=== PATIENT | male | born 1955 | race Caucasian/White ===

== ENCOUNTER 2019-04-30 12:02 | Outpatient (CLI) | payer MEDICARE ==
--- NOTE | 2019-04-30 13:49 | CT ---
CTA of the thorax with and without IV contrast INDICATION: History of peripheral vascular disease with diminished blood pressure involving the left upper extremity Contrast: 80 cc of Isovue-[id number] COMPARISON: None FINDINGS: There is [id number]-[id number]-grade stenosis involving the origin and proximal aspect of the left subclavian artery due to partially calcified atherosclerotic plaque. The brachiocephalic and left common carotid artery origins are widely patent. The right subclavian right common carotid arter y origins are patent. Visualized aspects of the vertebral artery origins appear widely patent. The remaining course of the left subclavian artery is widely patent. There are mild vascular calcificatio n involving the thoracic aorta. Visualized celiac and SMA artery origins are patent. No aortic aneurysm or dissection is grossly evident. No central pulmonary embolus is noted. No airspace consoli dation or pleural effusion is noted. No definite enlarged lymph nodes are noted. No definite acute osseous abnormality is evident. IMPRESSION: Near complete stenosis of the origin and proximal aspect of the left subclavian artery du e to calcified atherosclerotic plaque. No additional hemodynamically significant stenosis is seen involving the great vessels of the aortic arch. No acute aortic stenosis, occlusion or aneurysmal for mation is noted.
[2019-04-30] MEDS ORDERED: Iopamidol-370 76% 500 ML 1 ML ONE (13:57)
== END 2019-04-30 12:03 | disposition home or self-care (01) ==
LOC: BICCT 12:02
PROVIDERS: ATTEND Internal Medicine Cardiovascular Disease
DX: I73.9 Peripheral vascular disease, unspecified (principal); I77.1 Stricture of artery
CPT/HCPCS: 71275; 82565; Q9967

== ENCOUNTER 2019-05-06 15:29 | Outpatient (CLI) | payer MEDICARE ==
[~2019-05-06 15:29] MED LIST: Iopamidol-370 76% 500 ML 1 ML ONE
--- NOTE | 2019-05-06 16:09 | CT ---
CT arteriogram neck with IV contrast and 3-D imaging HISTORY: Vascular disease. Hypertension. FINDINGS: Normal branching great vessels at the aortic arch. High-grade stenosis of the origin of the left subclavian artery is as detailed on recent CT chest. The origin of the left vertebral artery is also very small, due partially to the adjacent plaque. Good flow into each vertebral artery. Direc tion is not established on this CT exam. There is prominent plaque and calcification at the right carotid bifurcation and proximal internal ca rotid artery. Within the mid cervical ICA, focal area of approximately 50% stenosis is present. On the left, there is calcification and noncalcified plaque at the bifurcation and left internal lang tid artery. Within the proximal to mid ICA, a focal area of moderate stenosis is present, estimated at 70%. No occlusion. Distal internal carotid arteries are very tortuous bilaterally. Mucosal thickening is evident within the paranasal sinuses. IMPRESSION: Atherosclerosis. Significant stenosis of each internal carotid artery, left greater than right. 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 Stenosis at the origin of the left subclavian artery is again demonstrated, better detailed on recent CT arteriogram chest exam.
== END 2019-05-06 15:30 | disposition home or self-care (01) ==
LOC: BICCT 15:29
PROVIDERS: ATTEND Internal Medicine Cardiovascular Disease
DX: I73.9 Peripheral vascular disease, unspecified (principal); I65.23 Occlusion and stenosis of bilateral carotid arteries
CPT/HCPCS: 70498; Q9967

== ENCOUNTER 2019-05-14 07:47 | Day surgery (SDC) | payer MEDICARE ==
[2019-05-13 10:42] VITALS: BMI 25.6
[2019-05-14] MEDS ORDERED: Lidocaine 1% (PF) 30 ML VIAL ONE (09:26)
[2019-05-14] MEDS ORDERED: Heparin (Artline) 1,000 ML ONE (09:26)
[2019-05-14] MEDS ORDERED: Fentanyl 100 MCG/2 ML VIAL ONE (09:52)
[2019-05-14] MEDS ORDERED: Midazolam HCl 2 mg/2 ml Vial ONE (09:52)
--- NOTE | 2019-05-14 18:47 | EKG ---
Test Reason : PREOP Blood Pressure : / mmHG Vent. Rate : 057 BPM Atrial Rate : 057 BPM P-R Int : 168 ms QRS Dur : 154 ms QT Int : 462 ms P-R-T Axes : 042 -09 166 degrees QTc Int : 449 ms Sinus bradycardia Left bundle branch block Abnormal ECG No previous ECGs available Confirmed by KELSEA MARTINEZ, DR. Galaviz ([id number]) on 05/14/2019 6:46:47 PM Referred By: HIRAM Confirmed By:DR. Guillaume ENAMORADO MD
== END 2019-05-14 13:10 | disposition home or self-care (01) ==
LOC: CCL 07:47
PROVIDERS: ATTEND Internal Medicine Cardiovascular Disease
PROC: 4A023N7 Measurement of Cardiac Sampling and Pressure, Left Heart, Percutaneous Approach (ICD-10-PCS; principal; 2019-05-14)
PROC: B2111ZZ Fluoroscopy of Multiple Coronary Arteries using Low Osmolar Contrast (ICD-10-PCS; 2019-05-14)
DX: I44.7 Left bundle-branch block, unspecified (principal); I73.9 Peripheral vascular disease, unspecified; I10 Essential (primary) hypertension; F17.210 Nicotine dependence, cigarettes, uncomplicated; I65.23 Occlusion and stenosis of bilateral carotid arteries; I77.1 Stricture of artery; I70.8 Atherosclerosis of other arteries; Z79.82 Long term (current) use of aspirin; Z79.899 Other long term (current) drug therapy; Z88.0 Allergy status to penicillin
CPT/HCPCS: 93005; 93010; 93458; 99152; 99153; C1769; J1644; J2001; J2250; J3010

== ENCOUNTER 2021-04-06 06:50 | Outpatient (CLI) | payer MEDICARE | END 2021-04-06 06:51 | disposition home or self-care (01) | LOC: BICULT 06:50 | PROVIDERS: ATTEND Internal Medicine | DX: Z12.2 Encounter for screening for malignant neoplasm of respiratory organs (principal); Z13.6 Encounter for screening for cardiovascular disorders; F17.210 Nicotine dependence, cigarettes, uncomplicated | CPT/HCPCS: 71271; 76775 ==